=== PATIENT | female | born 1955 | race Caucasian/White ===

== ENCOUNTER 2018-01-16 13:48 | Day surgery (SDC) | payer OTHER, SELFPAY ==
[2018-01-07 12:27] VITALS: BMI 29.7
[2018-01-16 14:36] VITALS: BP 130/75; PULSE 63; RESP 16; TEMP 36.3; O2SAT 99; BMI 29.7
[2018-01-16] MEDS: LACTATED RINGERS 1,000 ML 42 ML IV (14:50)
--- NOTE | 2018-01-16 15:50 | PM.PREOP ---
Pre-operative Note Interval Note Pre-op Check: Yes History & Physical Reviewed by Physician and Yes Exam Performed Changes: No
[2018-01-16] MEDS: CEFAZOLIN 2 GM/100 ML FROZ.PIGGY IV (16:29)
--- NOTE | 2018-01-16 16:56 | SUR.OPER ---
Supine on padded OR bed. Pillow under head, arms secured on padded armboards <90 degree abduction. Safety belt across torso. Non-operative leg secured with tape over blanket over lower leg. Operative leg secured per surgeon during procedure. Foam padded brace at thigh of operative leg.
[2018-01-16] MEDS: LIDOCAINE 1% W/EPI INJ 20 ML INJ (17:00)
[2018-01-16 17:12] VITALS: BP 111/71; PULSE 68; RESP 14; TEMP 36.9; O2SAT 100
--- NOTE | 2018-01-16 17:15 | PM.OP.1 ---
Operative Date/Time/Diagnoses Date of procedure: 01/16/18 Time of procedure: 17:15 Pre-op diagnosis: Medial meniscal tear left knee Lateral meniscal tear left knee Tricompartmental osteoarthritis left knee Post-op diagnosis: same Procedure & Clinicians Procedure: Left knee arthroscopy with partial medial and lateral meniscectomy Same procedure as scheduled: Yes Indications: The patient presents today for left knee arthroscopy after failure of conservative treatment. The nature of the procedure including the risks and benefits, alternatives, postoperative course and expected outcome were discussed and all questions answered. Consent was obtained. Operative site confirmed and marked. Surgeon: Kun Pulido Click Yes if Unassisted: Yes Anesthesia Type: General and Local Operative Notes Findings: Examination under anesthesia was unremarkable except for small effusion. Arthroscopic evaluation revealed some complex tearing of the midbody of the lateral meniscus which was debrided with a shaver. The majority of the lateral meniscus was intact. There is diffuse grade 3 chondromalacia of the lateral compartment. There is complex tearing of the posterior horn of the medial meniscus with a horizontal component. This was trimmed to a stable rim with a basket and shaver. A significant amount of the meniscus was removed. There was grade 4 chondromalacia of the medial tibial plateau and grade 2-3 chondromalacia of the medial femoral condyle. There is diffuse grade 2 chondromalacia of the patellofemoral joint. No chondroplasty was performed. Closure Type: primary Specimen(s): none sent Estimated Blood Loss (mL): 2 Blood products transfused: none Tourniquet time (min): 15 Procedure in detail: The patient was taken to the operative suite and given prophylactic antibiotics. Examination under anesthesia was performed. The leg was then prepped and draped in usual sterile fashion. The leg was exsanguinated with an Esmarch dressing and the tourniquet raised to 300 torr. The portal sites were anesthetized with 1% lidocaine with epinephrine and then established with an 11 blade. Medial and lateral parapatellar working portals were utilized. The scope was placed into the medial portal and into the lateral compartment of the knee. The knee was placed in the figure 4 position. The knee was then allowed to hang down at 90? and the notch evaluated. The knee was then extended and the scope switched to the lateral portal and placed up in the anterior compartment. The patellofemoral joint, medial gutter, lateral gutter and suprapatellar pouch were inspected. A valgus force was then placed across the knee over lateral stress post and the medial compartment was evaluated. See specific findings and procedures above. The arthroscopy was completed and the knee drained. The knee was filled with 30 mL of 0.5% ropivacaine and 4 of morphine. The portal sites were closed with Steri-Strips. A sterile gauze and Campos wrap dressing was applied. The patient tolerated procedure well and was returned to recovery room in good condition. Complications: none Condition: stable Disposition: same day surgery Plan for aftercare: Discharge to home. Weightbearing activity as tolerated. Clinic follow-up in 2 weeks.
[2018-01-16 17:17] VITALS: BP 120/68; PULSE 60; RESP 15; O2SAT 98
[2018-01-16 17:28] VITALS: BP 119/74; PULSE 62; RESP 12; TEMP 37.1; O2SAT 96
[2018-01-16 17:40] VITALS: BP 117/72; PULSE 60; RESP 16; O2SAT 100
== END 2018-01-16 17:55 | disposition home or self-care (01) ==
PROVIDERS: Visit Provider Orthopaedic Surgery
PROC: (CPT 29870; principal; 2018-01-16 15:15)
DX: M17.12 Unilateral primary osteoarthritis, left knee (principal); M94.262 Chondromalacia, left knee; I25.10 Atherosclerotic heart disease of native coronary artery without angina pectoris; Z79.82 Long term (current) use of aspirin; I10 Essential (primary) hypertension
CPT/HCPCS: 29880; J0690; J1100; J2250; J2405; J2704; J3010

== ENCOUNTER → 2019-04-03 08:43 | Outpatient (CLI) | payer OTHER, SELFPAY ==
[2019-04-03 09:52] LABS: Add Manual Diff / Slide Review NO; Basophils Absolute Auto 100 /uL (0-100); Basophils Percent Auto 1.3 % (0-2); Eosinophils Absolute Auto 200 /uL (0-450); Eosinophils Percent Auto 3.9 % (2-4); Hematocrit 39.3 % (36-46); Hemoglobin 13.5 g/dL (12.0-16.0); Lymphocytes Absolute Auto 1200 /uL (1100-4500); Lymphocytes Percent Auto 23.4 % (25-40); Mean Corpuscular HGB Conc 34.3 % (30-36); Mean Corpuscular Hemoglobin 32.9 PG (26-34); Monocytes Absolute Auto 400 /uL (0-900); Monocytes Percent Auto 7.9 % (3-14); Neutrophils Absolute Auto 3300 /uL (1500-7000); Neutrophils Percent Auto 63.5 % (50-75); Platelet Count 187 X10^3/uL (150-400); Red Blood Cell Count 4.09 X10^6/uL (4.0-5.2); Red Cell Distribution Width 13.8 % (11.6-14.8); White Blood Cell Count 5.2 X10^3/uL (4.5-11.0)
[2019-04-03 10:10] LABS: Alanine Aminotransferase 23 IU/L (9-52); Albumin 3.7 g/dL (3.5-5.0); Alkaline Phosphatase 46 U/L (38-126); Aspartate Aminotransferase 25 IU/L (14-36); BUN Creatinine Ratio 28.6 (6-22); Bilirubin Total 0.4 mg/dL (0.2-1.3); Blood Urea Nitrogen 20 mg/dL (7-17); Estimated Glomerular Filt Rate > 60.0 mL/min (>60); Gamma Glutamyl Transpeptidase 12 U/L (12-43); Glucose 83 mg/dL (80-110); Total Protein 5.9 g/dL (6.3-8.2)
[2019-04-03 10:41] LABS: Thyroid Stimulating Hormone 1.15 uIU/mL (0.47-4.68)
[2019-04-03 10:43] LABS: Ferritin 58.2 ng/mL (11.1-264)
[2019-04-03 12:43] LABS: Hepatitis B Surface Antigen NEGATIVE s/c (NEGATIVE)
[2019-04-05 18:27] LABS: Hepatitis B Core Antibody Nonreactive (Nonreactive)
== END ==
PROVIDERS: Visit Provider Internal Medicine
DX: R53.83 Other fatigue (principal); E04.2 Nontoxic multinodular goiter; K74.60 Unspecified cirrhosis of liver; I25.10 Atherosclerotic heart disease of native coronary artery without angina pectoris; I71.2 Thoracic aortic aneurysm, without rupture; E78.5 Hyperlipidemia, unspecified; R01.1 Cardiac murmur, unspecified
CPT/HCPCS: 36415; 82040; 82247; 82565; 82728; 82947; 82977; 84075; 84155; 84443; 84450; 84460; 84520; 85025; 86376; 86704; 87340

== ENCOUNTER → 2019-05-08 08:16 | Outpatient (CLI) | payer OTHER, SELFPAY ==
[2019-05-08 09:35] LABS: Cholesterol 210 mg/dL (140-199); HDL Cholesterol 86 mg/dL (40-60); LDL Cholesterol Calculated 108 mg/dL (<100); Triglycerides 80 mg/dL (35-150)
== END ==
PROVIDERS: PCP Internal Medicine; Visit Provider Internal Medicine
DX: E78.5 Hyperlipidemia, unspecified (principal)
CPT/HCPCS: 36415; 80061

== ENCOUNTER → 2019-08-29 19:19 | Outpatient (CLI) | payer OTHER, SELFPAY ==
--- NOTE | 2019-08-29 19:23 | DI.RAD.S_ITS ---
PROCEDURE: XR FOOT LT MIN 3V INDICATIONS: LEFT FOOT PAIN TECHNIQUE: 3 views of the foot were acquired. COMPARISON: None. FINDINGS: Bones: No acute fractures or dislocations. Small corticated bony fragment adjacent to the proximal 5th metatarsal. No suspicious bony lesions. Soft tissues: No tibiotalar joint effusion. Achilles tendon appears normal. 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 No definite acute fracture. No osseous lesion. If symptoms and/or clinical suspicion for pathology persist, further assessment with repeat, or nonemergent advanced imaging (e.g., CT, MRI, or bone scan) may be helpful for further assessment. Dictated by: Hunter Zimmerman M.D. on 08/29/2019 at 20:01 Approved by: Hunter Zimmerman M.D. on 08/29/2019 at 20:02
== END ==
PROVIDERS: PCP Internal Medicine; Referring Provider Student in an Organized Health Care Education/Training Program; Visit Provider Student in an Organized Health Care Education/Training Program
DX: M79.672 Pain in left foot (principal); S92.352G Displaced fracture of fifth metatarsal bone, left foot, subsequent encounter for fracture with delayed healing
CPT/HCPCS: 73630

== ENCOUNTER → 2020-03-16 10:43 | Outpatient (CLI) | payer MEDICARE, SELFPAY ==
[2020-03-16 12:11] LABS: BUN Creatinine Ratio 26.7 (6-22); Blood Urea Nitrogen 23 mg/dL (7-17); Calcium 9.2 mg/dL (8.4-10.2); Carbon Dioxide 28 mmol/L (22-32); Chloride 100 mmol/L (98-107); Estimated Glomerular Filt Rate > 60.0 mL/min (>60); Glucose 106 mg/dL (80-110); HEMOLYSIS < 15 (0-50); Potassium 4.9 mmol/L (3.4-5.1); Sodium 134 mmol/L (137-145)
== END ==
PROVIDERS: PCP Internal Medicine; Referring Provider Internal Medicine Interventional Cardiology; Visit Provider Internal Medicine Interventional Cardiology
DX: I71.9 Aortic aneurysm of unspecified site, without rupture (principal); I25.10 Atherosclerotic heart disease of native coronary artery without angina pectoris
CPT/HCPCS: 36415; 80048

== ENCOUNTER → 2020-08-16 07:24 | Outpatient (CLI) | payer OTHER, SELFPAY ==
[2020-08-16 09:55] LABS: Add Manual Diff / Slide Review NO; Basophils Absolute Auto 100 /uL (0-100); Eosinophils Absolute Auto 200 /uL (0-450); Eosinophils Percent Auto 2.5 % (2-4); Hematocrit 41.4 % (36-46); Hemoglobin 14.2 g/dL (12.0-16.0); Lymphocytes Absolute Auto 1700 /uL (1100-4500); Lymphocytes Percent Auto 27.5 % (25-40); Mean Corpuscular HGB Conc 34.3 % (30-36); Mean Corpuscular Hemoglobin 33.5 PG (26-34); Mean Corpuscular Volume 97.7 fL (80-100); Monocytes Absolute Auto 500 /uL (0-900); Monocytes Percent Auto 7.6 % (3-14); Neutrophils Absolute Auto 3800 /uL (1500-7000); Neutrophils Percent Auto 61.4 % (50-75); Platelet Count 168 X10^3/uL (150-400); Red Blood Cell Count 4.24 X10^6/uL (4.0-5.2); Red Cell Distribution Width 14.3 % (11.6-14.8); White Blood Cell Count 6.2 X10^3/uL (4.5-11.0)
[2020-08-16 10:15] LABS: Alanine Aminotransferase 24 IU/L (<35); Albumin 3.9 g/dL (3.5-5.0); Albumin Globulin Ratio 1.5 (1.0-2.8); Alkaline Phosphatase 47 U/L (38-126); Aspartate Aminotransferase 34 IU/L (14-36); BUN Creatinine Ratio 27.6 (6-22); Bilirubin Total 0.5 mg/dL (0.2-1.3); Blood Urea Nitrogen 29 mg/dL (7-17); Carbon Dioxide 27 mmol/L (22-32); Chloride 104 mmol/L (98-107); Cholesterol 186 mg/dL (140-199); Estimated Glomerular Filt Rate 52.6 mL/min (>60); Globulin 2.6 g/dL (1.7-4.1); Glucose 85 mg/dL (80-110); HDL Cholesterol 91 mg/dL (40-60); HEMOLYSIS < 15 (0-50); LDL Cholesterol Calculated 85 mg/dL (<100); Sodium 134 mmol/L (137-145); Total Protein 6.5 g/dL (6.3-8.2); Triglycerides 50 mg/dL (35-150)
== END ==
PROVIDERS: PCP Internal Medicine; Referring Provider Orthopaedic Surgery Adult Reconstructive Orthopaedic Surgery; Visit Provider Orthopaedic Surgery Adult Reconstructive Orthopaedic Surgery
DX: Z01.818 Encounter for other preprocedural examination (principal); R73.9 Hyperglycemia, unspecified; E78.5 Hyperlipidemia, unspecified; Z01.812 Encounter for preprocedural laboratory examination
CPT/HCPCS: 36415; 80053; 80061; 83036; 85025; 93005

== ENCOUNTER → 2020-09-13 11:02 | Outpatient (CLI) | payer OTHER, SELFPAY ==
[2020-09-13 14:32] LABS: COVID19 -Nasal RAPID Negative (Negative)
== END ==
PROVIDERS: PCP Internal Medicine; Visit Provider Physician Assistant
DX: Z20.822 Contact with and (suspected) exposure to COVID-19 (principal)
CPT/HCPCS: 87635; C9803

== ENCOUNTER 2020-09-15 06:36 | Day surgery (SDC) | payer OTHER, SELFPAY ==
[2020-09-15] VITALS (14 sets, daily range): BP systolic 88–125; BP diastolic 55–82; PULSE 50–68; RESP 12–21; TEMP 36.1–36.9; O2SAT 92–96; BMI 28.4
[2020-09-15] MEDS: LACTATED RINGERS 1,000 ML 42 ML IV ×2 (07:00→09:52)
--- NOTE | 2020-09-15 07:07 | DI.RAD.S_ITS ---
PROCEDURE: XR KNEE LT 1TO2V INDICATIONS: post op films TECHNIQUE: 2 view(s) of the knee acquired. COMPARISON: [facility], , KNEE 3V LEFT, 06/03/2016, 10:41. FINDINGS: Bones: Expected postoperative alignment of left knee arthroplasty. Hardware appears intact. Chronic post traumatic callus formation versus sessile exostosis involving the proximal fibula is unchanged. Soft tissues: Overlying postoperative changes are noted. IMPRESSION: Expected postoperative alignment Dictated by: Ervin Delacruz M.D. on 09/15/2020 at 10:28 Approved by: Ervin Delacruz M.D. on 09/15/2020 at 10:31
[2020-09-15] MEDS: MELOXICAM 7.5 MG TABLET 15 MG PO (07:28)
[2020-09-15] MEDS: PREGABALIN 75 MG CAPSULE PO (07:28)
[2020-09-15] MEDS: ACETAMINOPHEN 325 MG TABLET 975 MG PO (07:28)
--- NOTE | 2020-09-15 07:29 | PM.PREOP ---
Pre-operative Note COVID-19 COVID-19 status: Negative Result date/Date tested (Pos, Neg/Pending): 09/13/20 Interval Note History & Physical reviewed/Exam performed by Physician: Yes Changes to H&P: No H&P completed within 30 days and has changed as indicated here:: Plan for left TKA
[2020-09-15] MEDS: CEFAZOLIN 2 GM/100 ML FROZ.PIGGY IV ×3 (07:47→23:56)
[2020-09-15] MEDS: BUPIVACAINE 0.5% (PF) VIAL 30 ML INJ (08:01)
[2020-09-15] MEDS: TRIAMCINOLONE 40 MG/ML VIAL IM (08:03)
[2020-09-15] MEDS: TRANEXAMIC ACID 1,000 MG VIAL 1000 MG INJ ×2 (08:09→09:02)
--- NOTE | 2020-09-15 08:22 | SUR.OPER ---
Supine on padded OR bed. Pillow under head, arms secured on padded armboards <90 degree abduction. Safety belt across torso. Non-operative leg secured with tape over blanket over lower leg. Operative leg secured on Nathe knee positioner. Foam padded brace at thigh of operative leg.
[2020-09-15] MEDS: ROPIVACAINE 0.5% PF 5 MG/ML 20ML VIAL 60 ML INJ (08:29)
[2020-09-15] MEDS: MORPHINE 4 MG/ML INJ INJ (08:30)
[2020-09-15] MEDS: KETOROLAC 30 MG/ML VIAL IV (08:30)
[2020-09-15] MEDS: SODIUM CHLORIDE IRRIG SOLUTION 250 ML, POVIDONE-IODINE SPONGE STICKS 1 APPLIC IRR (08:33)
--- NOTE | 2020-09-15 09:29 | P.OP_ITS ---
Operative Date/Time/Diagnoses Date of procedure: 09/15/20 Time of procedure: 09:32 Pre-op diagnosis: left knee OA Post-op diagnosis: same Procedure & Clinicians Procedure: left TKA Same procedure as scheduled: Yes Indications: Left knee osteoarthritis resistant to further conservative measures Surgeon: Ernst White Painting Department Supervisor: Juni Byrd Anesthesia Type: General and Spinal Operative Notes Findings: Left knee osteoarthritis with osteophytes, subchondral sclerosis, and cartilage loss. Closure Type: primary Specimen(s): none sent Prosthetic devices, grafts, tissues, transplants, or devices: Dave and nephew Journey 2 size 6 left CR femur Size 5 left Journey tibial base plate Size 5-6 left 9 mm thick Journey 2 polyethylene deep dished 35 mm oval patellar button Estimated Blood Loss (mL): 100 Blood products transfused: none Tourniquet time (min): 47 Procedure in detail: Patient was met in the preoperative holding area where the site and side of surgery were marked by . Informed consent had been signed in clinic but was also reviewed the preoperative holding area. All last minute questions were answered. Patient also wants the right knee injected with steroid for continued pain relief on that side. This will be performed under anesthesia. Patient was then brought back in the operating room. She received a spinal anesthetic she was then placed supine on the table and induced under general anesthesia. The skin was prepped with ChloraPrep. A 22 gauge needle was inserted to the right knee from the superolateral portal position and 4 cc mixture of 1 cc of Kenalog and 3 cc of 0.5% lidocaine were then injected in the knee. The needle was then removed and match was placed. A nonsterile tourniquet was then placed on left thigh and the left lower extremity was then prepped and draped in the normal sterile fashion. A surgical time-out was performed verifying the site and side surgery well as the name of the patient. The left lower extremity was then exsanguinated using Esmarch and the tourniquet was inflated 250 mm of mercury. A longitudinal incision over the left knee was made in the skin using 10. Blade. A new 10. Blade was then used to make medial lateral flaps followed by the medial parapatellar arthrotomy. Hoffa's fat pad was then removed. A medial peel was then performed. The lateral meniscus was then removed as well as ACL. Amador's line was then marked as well as the entry site for the intramedullary aviva for the femur. A drill was then used to enter the femur as well as the tibia. Intramedullary aviva was placed inside the femur and a 5 degree left cutting block was then placed. This was pinned into place and a neutral cut was then made with an oscillating saw. The guides were then removed and intramedullary aviva was then placed inside the tibia. The cutting guide was then placed so that it took a minimal cut on the medial side just underneath the sclerotic bone. A drop aviva was used to verify varus valgus alignment. This was then pinned into place and the oscillating saw was then used to make this tibia cut. The tibia cut was then removed as well as the medial meniscus. The knee was then brought into full extension and a 9 mm static block was able place. The knee was then brought into flexion and gap supervisor welding equipment repairer was then used. This was compared to Whitesides line and showed a large amount external rotation about 5-6 degrees. This significantly tightened down the medial size compared to the lateral side in flexion. This was then abandoned and the standard distal femoral cutting guide was then placed and the guide was aligned to Whitesides line at about 40? of external rotation. This was then pinned in place and the femur was sized to size 6. This was then removed and compared to Amador line as well as epicondylar axis and. Appropriate. A size 6 distal femoral cutting block was then pinned into place and the 5 cuts were then made. A size 6 distal femur trial was then placed and the notch cut was then performed. A size 5 tibia was then selected with a 9 mm thick CR polyethylene this was very tight in flexion and was noted this point that the PCL was very tight a 15 blade was used to pie crust the PCL which improved the flexion gap. The knee was brought through range of motion with stable varus valgus stress through full extension and flexion range of motion. The patella was then cut using freehand technique and sized to a 35 mm oval patella this was then clamped in place and drilled a 35 mm oval button trial was then placed in the knee was brought to range of motion with good patellar tracking. The tibial trial external rotation was then marked using floating technique. At this point the patellar trial was then removed the lug holes for the femoral component were th en drilled in the femoral component was removed tibial trial was then removed and the tibial base plate was then matched to our previous farooq and the tibia was prepped. Pulse lavage was used to thoroughly irrigate the knee as well as the cut surfaces of the bone. Local anesthetic was infiltrated in the posterior aspect knee as well as the periarticular soft tissues. Cement was mixed. Cement was then finger packed onto the cleaned and dried cut surface of the tibia. So was also placed on the posterior aspect of the tibial tray. Tray was then malleted into place and excess cement was removed. Saw was then finger packed onto the cut surface of the femur with exception of the posterior condylar cut. Cement was placed on the posterior condylar feet of the femoral component this was then malleted into place and excess cement was removed. A 9 mm thick polyethylene trial was then placed in the knee was brought into full extension and ankles held in internal rotation. Some was then placed onto the patella and the patellar button was then clamped in place excess cement was removed. At this point Betadine solution was placed in the wound for several minutes after which was pulse lavaged with copious normal saline. Once the cement was fully cured the knee was brought through range of motion final time the midline mm thick polyethylene trial was removed and a 9 mm thick deep dish polyethylene was then placed verifying the medial and lateral tabs were well engaged. The knee was then irrigated a final time. Hemostasis was achieved using electrocautery. The medial parapatellar arthrotomy was closed using 1. Vicryl interrupted fashion followed by running Quill suture. A running fat suture with a 2 Vicryl was then performed followed by 2 0 Vicryl in the subcutaneous layer followed by 3-0 Stratafix Dermabond and Aquacel dressing. Complications: none Post-operative Condition: stable Disposition: PACU Plan for aftercare: 24 hours post-op abx, WBAT LLE, ASA 81mg BId for 6 weeks for DVT prophylaxis
[2020-09-15] MEDS: OXYCODONE IR 5 MG TABLET PO ×4 (10:16→22:01)
[2020-09-15] MEDS: LACTATED RINGERS 1,000 ML 100 ML IV ×2 (12:32→23:10)
--- NOTE | 2020-09-15 13:41 | PC.NURSE ---
Assess- Patient is alert and oriented x3. She had a left total knee, aquacel dressing in place with acosta wrap over top of dressing. Patient was having some plain down in PACU and was given 5mg of oxycodone. Patient states that this helped her discomfort. CMS to l.knee is cdi, ppx2 and patient has feeling to her leg and knee. She is on a gluten free diet, she has LR infusing at 100cc/hr and is tolerating this well. Voices no complaints of pain now. Will explain pain medication regimen to her.
[2020-09-15] MEDS: IBUPROFEN 400 MG TABLET PO ×3 (14:06→20:46)
[2020-09-15] MEDS: ACETAMINOPHEN 325 MG TABLET 650 MG PO ×2 (14:07→20:46)
--- NOTE | 2020-09-15 14:37 | PT.IIE ---
Current Diagnoses Unilateral primary osteoarthritis, left knee (09/15/20) Surgery Performed Operation Date: 09/15/20 07:45 Actual Procedures p Left Total Knee Arthroplasty, Right knee steroid injection(Left) - Ernst White MD Surgical History (Last Updated 01/07/18 @ 13:14 by Yana Lyon, RN) H/O hernia repair (~1996) History of appendectomy (~1995) History of lumpectomy of right breast Status post LASIK surgery of both eyes Medical History (Last Updated 01/07/18 @ 13:55 by Yana Lyon, RN) Aortic valve regurgitation Breast cancer (~2014) Chest pain Coronary arteriosclerosis Diastolic dysfunction Dyspnea on exertion H/O coronary angiogram (~07/23/17) History of chest pain Hypertension Leg swelling Lung nodule, multiple Sinus bradycardia Thoracic aortic aneurysm without rupture Thyroid mass Physical Therapy Inpatient Evaluation/Re-Eval M1 PT/OT-IP Prior Functional Status Start: 09/15/20 16:17 Freq: NEEDED Status: Active Protocol: Document 09/15/20 14:37 AB (Rec: 09/15/20 16:34 AB [id number]) Medical Review Prior Functional Status Medical History Reviewed Yes Communication able to make needs known Mobility and Gait pt stated that she is independent with all mobilities and ambulation without AD Social History Household Members none Living Arrangements House Number of Floors (Floors) 3 or More Floors Number of Stairs To Enter/Railing? pt will stay on main level of the house no steps to enter; ramp Home Environment High Toilet,Walk in Shower, Ramp Home Equipment Bedside Commode,Grab Bars In Shower Additional Social History Comment pt will have her friends stay and assist her at home for 2-3 weeks pt stated that she will use her bedside commode as a shower chair and a RTS M2 PT-IP Current Condition Start: 09/15/20 16:17 Freq: NEEDED Status: Active Protocol: Document 09/15/20 14:37 AB (Rec: 09/15/20 16:34 AB [id number]) Physical Therapy Current Condition Current Condition Evaluation Date 09/15/20 Treatment Diagnosis s/p L TKA; difficulty in walking Onset Date 09/15/20 Weight Bearing Status Weight Bearing Status Weight Bear as Tolerated Allowed Weight Bearing Amount (enter % LLE WBAT or #) (%) M3 PT-IP Subjective Start: 09/15/20 16:17 Freq: NEEDED Status: Active Protocol: Document 09/15/20 14:37 AB (Rec: 09/15/20 16:34 AB [id number]) Subjective Physical Therapy Visit Type Type Initial Evaluation Visit Start Time 14:37 Visit Stop Time 15:35 Total Visit Minutes 58 Number of LIFE SCIENCES INSTRUCTOR Visits 0 Physical Therapy Visit Comments Patient Comments pt is agreeable to do PT Therapy Pain Assessment Pain When Pain Assessed At Rest Pain Present Pain Present Pain Reported Location Left Knee Intensity 3 Scale Used increases to 6/10 with mobility Pain Management Techniques Apply Cold,Distraction, Elevation,Modification of Treatment,Re-positioning, Timing of Activity with Medications M4 PT-IP Mobility and Gait Start: 09/15/20 16:17 Freq: NEEDED Status: Active Protocol: Document 09/15/20 14:37 AB (Rec: 09/15/20 16:34 AB [id number]) PT-Bed Mobility Assessment Supine to Sit Supine to Sit Standby Assistance Scooting Scooting to Edge of Bed Standby Assistance PT-Transfer Assessment Sit to and From Stand Sit to and from Stand Contact Guard Assistance, Minimal Assistance Equipment Transfer Assistive Device Gait Belt,Front Wheeled Walker Orthotic/Prosthetic Devices or Brace: No Transfers Transfer Destination Toilet Transfer Technique ambulated using FWW Transfer Ability Level of Assist Contact Guard Assistance, Minimal Assistance,1 Person Assistance,Use of Upper Extremities Comments Mobility Comments BP supine: 120/70. completed supine to sit SBA. pt was able to sit on EOB SBA. c/o slight dizziness. BP: 133/75. completed sit to stand CGA to min A. ambulated in room using FWW ~ 30 ft CGA to min A and requested to use the toilet. ambulated to the toilet using FWW SBA to min A and cues. completed sit to stand from the toilet using grab bar min A and ambulated towards the sink CGA using FWW . pt was able to maintain standing by the sink FWW for support CGA while completing handwashing. agreed to sit up on chair and ambulated to the chair using FWW CGA. positioned on chair. ice pack provided. call light and table placed within reach. Gait Assessment Gait Gait Assistance Required: Contact Guard Assist,Minimum Assistance Distance (Feet) 30 Able to Maintain Weight Bearing Status Yes During Gait Assistive Devices Assistive Device Gait Belt,Front Wheeled Walker Orthotic/Prosthetic Devices or Brace: No Gait Deviations General Gait Pattern Antalgic,Decreased Stride Length,Decreased Feet Clearance Factors Limiting Gait Function Factors Limiting Gait Function Decreased Activity Tolerance, Decreased Strength,Limited Range of Motion,Pain,Poor Balance,Poor Safety Awareness PT-Balance Assessment Sitting Balance and Reactions Static Sitting Balance Ability Good Dynamic Sitting Balance Ability Good Standing Balance and Reactions Static Standing Balance Ability Fair Dynamic Standing Balance Ability Fair Device Used FWW M5 PT-IP Objective Assessments Start: 09/15/20 16:17 Freq: NEEDED Status: Active Protocol: Document 09/15/20 14:37 AB (Rec: 09/15/20 16:34 AB [id number]) Orientation Orientation/Cognition Level of Alertness Alert Orientation Name,Age,Birthday,Month,Date, Year,Day of Week,Place, Situation Language Function Ability No Deficits Noted Safety Awareness Understands Safety Issues Memory Description No Deficits Noted Gross Range of Motion Lower Extremity ROM Assessment Left Impaired Impairments L knee flexion: ~ 50 degrees L knee extension: lacking ~ 30 degrees to neutral has increase muscle guarding affecting movement Strength Lower Extremity Strength Assessment Left Impaired Hip 4-/5 Knee 3+/5 Coordination Assessment Gross Coordination Gross Coordination WNL Sensation Assessment Sensation Gross Sensation WNL Muscle Tone Muscle Tone WNL Yes M6 PT-IP Treatment Start: 09/15/20 16:17 Freq: NEEDED Status: Active Protocol: Document 09/15/20 14:37 AB (Rec: 09/15/20 16:34 AB [id number]) Physical Therapy Treatment Exercises Exercises Heel Slides Education Education Provided Precautions,Weight Bearing Status,Post-Op Packet,Safety M7 PT-IP Assessment and Plan Start: 09/15/20 16:17 Freq: NEEDED Status: Active Protocol: Document 09/15/20 14:37 AB (Rec: 09/15/20 16:34 AB [id number]) PT Summary Assessment and Plan Potential Rehabilitation Potential Good Status of Condition at Evaluation Stable Summary Impairments Pain,ROM,Strength,Balance, Coordination,Bed Mobility, Transfers,Gait,Activity Tolerance Assessment Summary pt requiring CGA to min A with mobility and plans to go home with friends to assist her. will conduct caregiver training when appropriate. pt stated that she is set up for out pt PT. will continue to assess progress. Goals Bed Mobility Goal Independent Transfer Goal Independent,Front Wheeled Walker Gait Goal Independent,Front Wheel Walker Gait Distance 250 Days to Meet Goals 3 Frequency of Treatment Frequency Of Treatment Twice a Day Treatment Plan Physical Therapy Treatment Plan Bed Mobility Training,Transfer Training,Gait Training, Therapeutic Exercise,Balance Retraining,Post Op Education, Discharge Planning,Hot or Cold Pack,Neuromuscular Re-ed, Coordination Retraining,Manual Therapy Precautions Other Precautions LLE WBAT Recommendations To Nursing Amount of Assist Needed 1 Person Assist Discharge Recommendations PT Discharge Recommendations Home with Assistance, Outpatient PT Transportation Needs at Discharge Private Vehicle
[2020-09-15] MEDS: ONDANSETRON 4 MG/2 ML INJ IV (16:16)
[2020-09-15] MEDS: DOCUSATE 100 MG CAPSULE PO (20:46)
[2020-09-15] MEDS: METOPROLOL IR 25 MG TABLET 12.5 MG PO (20:46)
[2020-09-15] MEDS: PRAVASTATIN 20 MG TABLET 10 MG PO (20:46)
[2020-09-15] MEDS: ASPIRIN EC 81 MG TABLET PO (20:46)
[2020-09-15] MEDS: HYDROMORPHONE 0.5 MG INJ 0.2 MG IV (20:54)
[2020-09-16] MEDS: IBUPROFEN 400 MG TABLET PO ×3 (00:45→08:20)
[2020-09-16 01:00] VITALS: BP 115/47; PULSE 52; RESP 16; TEMP 36.1; O2SAT 96
--- NOTE | 2020-09-16 03:29 | PC.NURSE ---
0100: patient is alert and oriented. Breath sounds CTA with RA sat of 96%; on continuous oximetry. HRR but bradycardic at 52 bpm. Slight nausea when up to bathroom but resolved after being back to bed and denies need for antiemetic. BT present and states she is passing flatus. Denies dysuria, frequency or urgency with urination. Able to move self in bed and got up to bathroom with walker and SBA; does have limited ROM in left knee and some weakness. Aquacel dressing covered with acosta wrap to left knee is CDI; bruising noted on posterior thigh just above acosta wrap. CMS is intact. States pain is only 1/10 so medicated only with scheduled Ibuprofen but is aware she can have other pain medication should pain intensify; ice pack applied. Wearing bilateral calf SCD's. Fall risk score is moderate and bed alarm is activated.
[2020-09-16] MEDS: OXYCODONE IR 5 MG TABLET PO ×2 (05:02→08:19)
[2020-09-16 06:00] VITALS: BP 121/87; PULSE 60; RESP 16; TEMP 36.1; O2SAT 97
[2020-09-16 06:34] LABS: Hemoglobin 11.9 g/dL (12.0-16.0)
[2020-09-16] MEDS: DOCUSATE 100 MG CAPSULE PO (08:19)
[2020-09-16] MEDS: ASPIRIN EC 81 MG TABLET PO (08:19)
[2020-09-16] MEDS: hydroCHLOROthiazide 25 MG TABLET 12.5 MG PO (08:20)
[2020-09-16] MEDS: METOPROLOL IR 25 MG TABLET 12.5 MG PO (08:20)
[2020-09-16] MEDS: ACETAMINOPHEN 325 MG TABLET 650 MG PO (08:20)
--- NOTE | 2020-09-16 08:31 | PM.DS.1 ---
History of Present Illness History of Present Illness Date Patient Seen: 09/16/20 Time Patient Seen: 08:31 Chief complaint: OPB Narrative: Please refer to previously documented HPI and chart. Discharge Providers Provider Discharge Date: 09/16/20 Primary care physician: Ariadna Chairez MD Consults: 09/15/20 07:07 Consult to Anesthesiology Routine Comment: Consulting Provider: Anesthesiologist Reason for consultation: Regional block for post operative pain control 09/15/20 10:51 Consult to Discharge Planning Routine Comment: Consult to Physical Therapy Evaluate & Treat Comment: Physician Instructions: postop TKA protocol Consult to Respiratory Therapy Evaluate & Treat Comment: Physician Instructions: Evaluate and treat Discharge provider: Eric Rico PA-C Summary Hospital Course Discharge Diagnosis: Left knee osteoarthritis Status post left total knee arthroplasty Hospital Course: 65-year-old female with the above-listed diagnoses was appropriately consented for the above listed procedure presenting to the OR undergoing said procedure without difficulty or complication then admitted for rehabilitation convalescing without significant issue and stable for discharge home safely today after evaluation noting ability to void without difficulty and denying intractable pain or dysfunction including but not limited to fever, chills, chest pain and shortness of breath. The patient and or family verbalized understanding postoperative care instructions and plan for follow-up for re-evaluation in 2 weeks. Status at Discharge Cognitive/behavioral status at discharge: oriented Functional status at discharge: uses cane/walker Overall status at discharge: patient is progressing back to baseline Time Spent with Patient Time spent: Less than 30 minutes Exam Vital Signs (past 8 hours): - 09/16/20 01:00 09/16/20 06:00 Temperature 97.0 F L 97.0 F L Pulse Rate 52 L 60 Respiratory Rate 16 16 Blood Pressure 115/47 L 121/87 Pulse Oximetry 96 97 Oxygen Delivery Method Room Air Oxygen Flow Rate 0 Narrative Exam Narrative: Well-developed and well-nourished 65-year-old female observed resting comfortably in no apparent distress, alert and oriented x3 with normal heart rate and inspiratory effort. Their dressing was clean, dry and intact. The patient's extremities were neurovascularly intact without signs or symptoms of DVT. Objective Labs Result Diagrams: 09/16/20 06:11 Labs: Laboratory Results - last 24 hr 09/16/20 06:11 Hgb 11.9 L Hct 35.0 L [facility] Medical History (Updated 01/07/18 @ 13:55 by Yana Lyon RN) Aortic valve regurgitation Breast cancer (~2014) Chest pain Coronary arteriosclerosis Diastolic dysfunction Dyspnea on exertion H/O coronary angiogram (~07/23/17) History of chest pain Hypertension Leg swelling Lung nodule, multiple Sinus bradycardia Thoracic aortic aneurysm without rupture Thyroid mass Surgical History (Updated 01/07/18 @ 13:14 by Yana Lyon RN) H/O hernia repair (~1996) History of appendectomy (~1995) History of lumpectomy of right breast Status post LASIK surgery of both eyes Social History household members: none Smoking Status: Never smoker alcohol intake: current Discharge Assessment & Plan Assessment and Plan Assessment: Left knee osteoarthritis Status post left total knee arthroplasty Plan of Treatment: Discharge home today Total knee care protocol Follow-up in clinic in 2 weeks for re-evaluation or sooner as needed Discharge Plan Discharge Plan Patient Disposition: Home Discharge orders & Medications Discharge Orders: Discharge (Order); Ordered 09/16/20 Ordered By: Eric Rico Prescriptions: Continued meloxicam 7.5 mg Tablet 7.5 mg PO DAILY PRN (Reason: Pain) RF: 0 metoprolol tartrate 25 mg Tablet 12.5 mg PO BID RF: 0 hydrochlorothiazide 12.5 mg Tablet 12.5 mg PO DAILY RF: 0 coenzyme Q10 30 mg Capsule 30 mg PO DAILY RF: 0 cholecalciferol (vitamin D3) [Vitamin D3] 1,000 unit Tablet 1,000 unit PO DAILY RF: 0 omega-3 fatty acids-fish oil [Fish Oil] 300-1,000 mg Capsule 1 cap PO DAILY RF: 0 Chiki-E 400 mg Tablet 400 mg PO DAILY RF: 0 turmeric root extract 500 mg Capsule 500 mg PO DAILY RF: 0 oxycodone 5 mg tablet 5 mg PO Q4-6H PRN (Reason: pain) Qty: 14 RF: 0 pravastatin 10 mg Tablet 10 mg PO BEDTIME RF: 0 pravastatin 10 mg Tablet 10 mg PO BEDTIME RF: 0 Changed aspirin 81 mg Tablet,Delayed Release (Dr/Ec) 81 mg PO BID Qty: 0 RF: 0 Follow up/Referrals: Ernst White MD [Physician] - (2 weeks ) Ariadna Chairez MD [Primary Care Provider] - Diet/Activity/Treatments Diet: Diet as Tolerated Activity: WBAT with fall precautions Cold/Heat Therapy: Ice 20 min / hr as tolerated Skin/Wound/Dressing Care Report to your healthcare provider any signs of infection, such as:: chills, fever, night sweats, increased pain, unusual drainage and unusual redness Dressing: Keep dressing clean, dry and intact. Visit Report/Discharge Packet Instructions: DI for Knee Replacement, How to Prevent Falls, Stool Softeners, Acetaminophen, Oxycodone, Aspirin Stand Alone Forms: Surgery Discharge Discharge Data Primary Care Provider: Ariadna Chairez Attending Provider: Ernst White VTE Deep Vein Thrombosis/Pulmonary Embolism Present on Admission: No
--- NOTE | 2020-09-16 09:01 | PC.NURSE ---
Patient given oxycodone for discomfort to l.knee 01/01 pain. This has been helpful with her discomfort. She is a stand by assist to get up with walker. CMS wnl and ppx2. Patient ate well at breakfast, will check to see how pain medication is working for her. Aquacel dressing in place with acosta wrap.
--- NOTE | 2020-09-16 10:43 | PT.IPTN ---
Current Diagnoses Unilateral primary osteoarthritis, left knee (09/15/20) Surgery Performed Operation Date: 09/15/20 07:45 Actual Procedures p Left Total Knee Arthroplasty, Right knee steroid injection(Left) - Ernst White MD Physical Therapy Treatment Note M2 PT-IP Current Condition Start: 09/15/20 16:17 Freq: NEEDED Status: Discharge Protocol: Document 09/15/20 14:37 AB (Rec: 09/15/20 16:34 AB [id number]) Physical Therapy Current Condition Current Condition Evaluation Date 09/15/20 Treatment Diagnosis s/p L TKA; difficulty in walking Onset Date 09/15/20 Weight Bearing Status Weight Bearing Status Weight Bear as Tolerated Allowed Weight Bearing Amount (enter % LLE WBAT or #) (%) M3 PT-IP Subjective Start: 09/15/20 16:17 Freq: NEEDED Status: Discharge Protocol: Document 09/16/20 10:13 CLB (Rec: 09/16/20 12:01 CLB [id number]) Subjective Physical Therapy Visit Type Type Treatment Note Visit Start Time 10:13 Visit Stop Time 10:43 Total Visit Minutes 30 Notes Pt friend Aidee present for CG training. Number of WELD FITTER Visits 1 Physical Therapy Visit Comments Patient Comments pt is agreeable to do PT Therapy Pain Assessment Pain When Pain Assessed During Mobility Pain Present Pain Present Pain Reported M4 PT-IP Mobility and Gait Start: 09/15/20 16:17 Freq: NEEDED Status: Discharge Protocol: Document 09/16/20 10:13 CLB (Rec: 09/16/20 12:01 CLB [id number]) PT-Bed Mobility Assessment Sit to Supine Sit to Supine Standby Assistance Scooting Scooting Up and Down in Bed Standby Assistance PT-Transfer Assessment Sit to and From Stand Sit to and from Stand Standby Assistance,Use of Upper Extremities Equipment Transfer Assistive Device Gait Belt,Front Wheeled Walker Orthotic/Prosthetic Devices or Brace: No Transfers Transfer Destination Bed,Chair Transfer Technique ambulated using FWW Transfer Ability Level of Assist Standby Assistance,1 Person Assistance,Use of Upper Extremities Comments Mobility Comments Pt in chair upon arrival. Pt stood from chair SBA and ambulated in betts ~150ft w/FWW /SBA using step to gait pattern with increased pain with further ambulation. Pt then returned to room getting into bed SBA and performing ther ex. Pt left in bed with all needs within reach. Gait Assessment Gait Gait Assistance Required: Standby Assistance,1 Person Assist Distance (Feet) 150 Able to Maintain Weight Bearing Status Yes During Gait Assistive Devices Assistive Device Gait Belt,Front Wheeled Walker Gait Deviations General Gait Pattern Antalgic,Decreased Stride Length,Decreased Feet Clearance,Step-to Gait Factors Limiting Gait Function Factors Limiting Gait Function Decreased Activity Tolerance, Decreased Strength,Limited Range of Motion,Pain,Poor Balance Comments Gait Comments see mobility comments M5 PT-IP Objective Assessments Start: 09/15/20 16:17 Freq: NEEDED Status: Discharge Protocol: Document 09/15/20 14:37 AB (Rec: 09/15/20 16:34 AB [id number]) Orientation Orientation/Cognition Level of Alertness Alert Orientation Name,Age,Birthday,Month,Date, Year,Day of Week,Place, Situation Language Function Ability No Deficits Noted Safety Awareness Understands Safety Issues Memory Description No Deficits Noted Gross Range of Motion Lower Extremity ROM Assessment Left Impaired Impairments L knee flexion: ~ 50 degrees L knee extension: lacking ~ 30 degrees to neutral has increase muscle guarding affecting movement Strength Lower Extremity Strength Assessment Left Impaired Hip 4-/5 Knee 3+/5 Coordination Assessment Gross Coordination Gross Coordination WNL Sensation Assessment Sensation Gross Sensation WNL Muscle Tone Muscle Tone WNL Yes M6 PT-IP Treatment Start: 09/15/20 16:17 Freq: NEEDED Status: Discharge Protocol: Document 09/16/20 10:13 CLB (Rec: 09/16/20 12:01 CLB [id number]) Physical Therapy Treatment Exercises Exercises Ankle Pumps,Quad Sets,Heel Slides,Straight Leg Raises, Short Arc Quads,Passive Knee Extension Hang,Seated Knee Flexion/Extension Knee ROM Measurement flx 5-30 Education Education Provided Precautions,Weight Bearing Status,Post-Op Packet,Safety M7 PT-IP Assessment and Plan Start: 09/15/20 16:17 Freq: NEEDED Status: Discharge Protocol: Document 09/16/20 10:13 CLB (Rec: 09/16/20 12:01 CLB [id number]) PT Summary Assessment and Plan Potential Rehabilitation Potential Good Status of Condition at Evaluation Stable Summary Impairments Pain,ROM,Strength,Balance, Coordination,Bed Mobility, Transfers,Gait,Activity Tolerance Assessment Summary Pt is SBA for all mobility with increased pain with ambulation but pt has good safety awareness. Pt is able to perform all ther ex and has OP PT tomorrow. Pt has friends to assist her at home upon d/c. Goals Bed Mobility Goal Independent Transfer Goal Independent,Front Wheeled Walker Gait Goal Independent,Front Wheel Walker Gait Distance 250 Days to Meet Goals 3 Frequency of Treatment Frequency Of Treatment Twice a Day Treatment Plan Physical Therapy Treatment Plan Bed Mobility Training,Transfer Training,Gait Training, Therapeutic Exercise,Balance Retraining,Post Op Education, Discharge Planning,Hot or Cold Pack,Neuromuscular Re-ed, Coordination Retraining,Manual Therapy Precautions Other Precautions LLE WBAT Recommendations To Nursing Amount of Assist Needed 1 Person Assist Discharge Recommendations PT Discharge Recommendations Home with Assistance, Outpatient PT Transportation Needs at Discharge Private Vehicle
--- NOTE | 2020-09-16 10:47 | CM.IDA ---
Initial DCP Assessment Note Pt is a 65 yo female, resident of [place], now POD#1 from left knee surgery w/ Dr White PCP: Ariadna Chairez [facility]: [facility] Reviewed chart, pt discussed in multidisciplinary rounds this morning. Therapy has cleared pt for return home w/friends to assist and pt has planned for home, DC order from Ortho has already been initiated this morning. Met w/patient this morning, introduced role. Patient sitting up, states she has planned for two friends to stay the next two weeks and feels she will be in good hands for her recovery. No needs expected from DC planning team although will remain available in case this changes today. RUSTAM Betts
--- NOTE | 2020-09-20 15:28 | SUR.PHASEI ---
out of recovery time entered besed on chart times review by Edward Polanco RN
== END 2020-09-16 11:07 | disposition home or self-care (01) ==
LOC: OR 06:40 → AC 06:41
PROVIDERS: PCP Internal Medicine; Referring Provider Orthopaedic Surgery Adult Reconstructive Orthopaedic Surgery; Visit Provider Orthopaedic Surgery Adult Reconstructive Orthopaedic Surgery
PROC: 0SRD0JZ Replacement of Left Knee Joint with Synthetic Substitute, Open Approach (ICD-10-PCS; CPT 27447; principal; 2020-09-15 07:45)
DX: M17.12 Unilateral primary osteoarthritis, left knee (principal); E78.5 Hyperlipidemia, unspecified; I25.10 Atherosclerotic heart disease of native coronary artery without angina pectoris; I71.4 Abdominal aortic aneurysm, without rupture; I11.0 Hypertensive heart disease with heart failure
CPT/HCPCS: 27447; 36415; 73560; 85014; 85018; 97110; 97116; 97161; 97530; C1776; J0690; J1100; J1170; J1885; J2250; J2270; J2274; J2405; J2704; J3010

== ENCOUNTER → 2020-11-17 11:35 | Outpatient (CLI) | payer OTHER, SELFPAY ==
[2020-09-15 13:51] VITALS: BMI 28.4
[2020-11-17 12:34] LABS: Add Manual Diff / Slide Review NO; Basophils Absolute Auto 100 /uL (0-100); Basophils Percent Auto 1.2 % (0-2); Eosinophils Absolute Auto 200 /uL (0-450); Eosinophils Percent Auto 2.9 % (2-4); Hematocrit 39.4 % (36-46); Hemoglobin 13.3 g/dL (12.0-16.0); Lymphocytes Absolute Auto 1700 /uL (1100-4500); Lymphocytes Percent Auto 28.6 % (25-40); Mean Corpuscular HGB Conc 33.8 % (30-36); Mean Corpuscular Hemoglobin 32.9 PG (26-34); Mean Corpuscular Volume 97.5 fL (80-100); Monocytes Absolute Auto 600 /uL (0-900); Monocytes Percent Auto 10.1 % (3-14); Neutrophils Absolute Auto 3400 /uL (1500-7000); Neutrophils Percent Auto 57.2 % (50-75); Platelet Count 156 X10^3/uL (150-400); Red Blood Cell Count 4.04 X10^6/uL (4.0-5.2)
[2020-11-17 13:23] LABS: BUN Creatinine Ratio 30.2 (6-22); Blood Urea Nitrogen 19 mg/dL (7-17); Calcium 9.2 mg/dL (8.4-10.2); Carbon Dioxide 29 mmol/L (22-32); Chloride 99 mmol/L (98-107); Estimated Glomerular Filt Rate > 60.0 mL/min (>60); Glucose 94 mg/dL (80-110); HEMOLYSIS < 15 (0-50); Potassium 4.1 mmol/L (3.4-5.1); Sodium 133 mmol/L (137-145)
== END ==
PROVIDERS: PCP Internal Medicine; Referring Provider Orthopaedic Surgery Adult Reconstructive Orthopaedic Surgery; Visit Provider Orthopaedic Surgery Adult Reconstructive Orthopaedic Surgery
DX: Z01.812 Encounter for preprocedural laboratory examination (principal); R73.9 Hyperglycemia, unspecified
CPT/HCPCS: 36415; 80048; 83036; 85025

== ENCOUNTER → 2020-11-29 09:18 | Outpatient (CLI) | payer OTHER, SELFPAY ==
[2020-09-15 13:51] VITALS: BMI 28.4
[2020-11-29 12:28] LABS: COVID19 -Nasal RAPID Negative (Negative)
== END ==
PROVIDERS: PCP Internal Medicine; Visit Provider Physician Assistant
DX: Z01.812 Encounter for preprocedural laboratory examination (principal); Z20.822 Contact with and (suspected) exposure to COVID-19
CPT/HCPCS: 87635

== ENCOUNTER 2020-12-02 11:12 | Observation (INO) | payer OTHER, SELFPAY ==
[2020-09-15 13:51] VITALS: BMI 28.4
[2020-11-26 12:36] VITALS: BMI 28.8
[2020-12-01] VITALS (9 sets, daily range): BP systolic 94–128; BP diastolic 50–77; PULSE 48–60; RESP 16; TEMP 36.2–36.6; O2SAT 91–99; BMI 28.8
--- NOTE | 2020-12-01 07:40 | DI.RAD.S_ITS ---
PROCEDURE: XR KNEE RT 1TO2V INDICATIONS: post-op TECHNIQUE: 2 views of the knee were acquired. COMPARISON: [facility], CR, XR KNEE LT 1TO2V, 09/15/2020, 9:49. [facility], SUSAN, KNEE 3V LEFT, 06/03/2016, 10:41. FINDINGS: Bones: Expected appearance of the right total hip arthroplasty. No periprosthetic lucency. No fractures or dislocations. No suspicious bony lesions. Soft tissues: Joint effusion is present. Postoperative gas.. No suspicious soft tissue calcifications. IMPRESSION: Expected appearance of the right total hip arthroplasty. Dictated by: Darrin Curtis M.D. on 12/01/2020 at 13:34 Approved by: Darrin Curtis M.D. on 12/01/2020 at 13:35
[2020-12-01] MEDS: LACTATED RINGERS 1,000 ML 42 ML IV ×2 (09:31→12:15)
[2020-12-01] MEDS: ACETAMINOPHEN 325 MG TABLET 975 MG PO (09:33)
[2020-12-01] MEDS: GABAPENTIN 300 MG CAPSULE PO (09:34)
[2020-12-01] MEDS: CELECOXIB 200 MG CAPSULE PO (09:34)
--- NOTE | 2020-12-01 10:18 | PM.PREOP ---
Pre-operative Note COVID-19 COVID-19 status: Negative Result date/Date tested (Pos, Neg/Pending): 11/29/20 Interval Note History & Physical reviewed/Exam performed by Physician: Yes Changes to H&P: No H&P completed within 30 days and has changed as indicated here:: Plan for R TKA
[2020-12-01] MEDS: CEFAZOLIN 1 GM VIAL 2 GM IV ×2 (11:18→18:45)
[2020-12-01] MEDS: TRANEXAMIC ACID 1,000 MG VIAL 2000 MG INJ ×2 (11:19→12:30)
--- NOTE | 2020-12-01 11:35 | SUR.OPER ---
Supine on padded OR bed. Pillow under head, arms secured on padded armboards <90 degree abduction. Safety belt across torso. Non-operative leg secured with tape over blanket over lower leg, Gel pad under Left Heel. Operative leg in control of the Surgeon. Padded Dr. White roll bar positioner used with folded blankets under operative heel to make level with roll bar. Foam padded brace at outer thigh of operative leg, gel pad under patients posterior upper leg against positioner.
[2020-12-01] MEDS: ROPIVACAINE 0.5% PF 5 MG/ML 20ML VIAL 10 ML INJ (11:45)
[2020-12-01] MEDS: MORPHINE 4 MG/ML INJ INJ (11:47)
[2020-12-01] MEDS: KETOROLAC 30 MG/ML VIAL IV (11:48)
[2020-12-01] MEDS: POVIDONE-IODINE SPONGE STICKS 1 APPLIC TOP (12:31)
--- NOTE | 2020-12-01 13:16 | PM.OP.1 ---
Operative Date/Time/Diagnoses Date of procedure: 12/01/20 Time of procedure: 13:16 Pre-op diagnosis: right knee OA Post-op diagnosis: same Procedure & Clinicians Procedure: Right total knee arthroplasty Same procedure as scheduled: Yes Indications: right knee osteoarthritis resistant to further conservative measures Surgeon: Ernst White Photo Engraver: Juni Byrd Anesthesia Type: General and Spinal Operative Notes Findings: [id number] articulation of the lateral compartment of the right knee with overall valgus alignment. Hemosiderin staining of the soft tissues of the right knee consistent with prior hemarthrosis. Closure Type: primary Specimen(s): none sent Prosthetic devices, grafts, tissues, transplants, or devices: Dave and nephew Journey 2 CR size 6, right Dave and nephew Journey tibial base plate size 5, right Size 5-6 right 10 mm thick Journey 2 deep dish polyethylene 32 mm oval Annalisa 2 patellar button Estimated Blood Loss (mL): 100 Tourniquet time (min): 57 Procedure in detail: patient was met in the preoperative holding area where the site and side of surgery were marked by . Informed consent had been reviewed and signed in clinic was also reviewed the preoperative holding area and all last minute questions were answered. Patient was then brought back in the operating room where she received a spinal anesthetic she was then placed on the operating room table. She was induced under general anesthesia. The right lower extremity then prepped and draped after stitch placing a nonsterile tourniquet on the right thigh. a surgical time-out was performed verifying site and side of surgery as well as in the patient. The right lower extremity then exsanguinated using an Esmarch. The tourniquet was then inflated turned 50 mmHg. A longitudinal incision over the anterior aspect of the knee was made in the skin using a 10. Blade. A new 10. Blade was then used to elevate medial lateral flaps. The medial parapatellar arthrotomy was then marked out an incision was made with a 10. Blade. At this point copious dark stained synovial fluid with what appeared to be hemosiderin staining was encountered. This was lavaged away. The surfaces of the knee intracapsular they had hemosiderin staining. Hoffa's fat pad was removed. A medial peel which was limited nature was then performed. The lateral meniscus was removed. ACL was removed. Whitesides line was marked using electrocautery. a drill was then used to enter the femoral canal and tibial canal respectively. Intramedullary aviva was then placed inside the femur the right-sided distal femoral cutting jig was then placed and cut in the neutral slot. Intramedullary aviva was then placed inside the tibia and the out wood buffer jig was then used to place our cutting jig. This was provisionally pinned into place and the drop aviva was used to verify varus valgus alignment. The locking pin was then placed. A cut was then made set skin underneath the lateral portion of the sclerotic bone of the tibial plateau. Once this cut was complete the cut was removed the knee was then brought in full extension and a 9 mm static spacer was placed which was a little tight and the knee was not able to achieve full extension. We then went back to the tibia and took 2 more mm and then a 9 mm spacer fit and was balanced varus valgus. The was then brought into flexion gap cuprous chloride operator was used to leonora our rotation for our 5 in 1 cutting block. The gap cuprous chloride operator was then removed these holes were then compared to [place] line as well as epicondylar access which showed external rotation. The femur was then sized to a size 6. The 5 in 1 size 6 cutting block was then malleted into place and pinned. The sequential cuts were then made using a and oscillating saw. The 5 in 1 cutting block was then removed the bony fragments were removed. A size 6 trial femur was then placed along with a size 5 tibial base plate trial with a 9 mm thick polyethylene the knee was brought through range of motion with stable varus and valgus stress was able to achieve full extension was stable to varus valgus stress at mid flexion flexion range of motion as well. Patella was then freehand cut and sized to a size 32 mm patellar button. This then drilled and a patellar button trial was placed. The knee was brought through range of motion the patellar trial had some lift-off and a limited lateral release was then performed to achieve patellar tracking. The PCL was noted to be tight in flexion and deep flexion it was then pie crusted using a 15 blade. This improved biomechanics. The tibial base plate was then marked using floating technique. The trials were then removed and the tibial base plate was then replaced and the keel hole was drilled and punched. Bony fragments then placed inside the hole for the keel and malleted into place. A bony plug was then cut for the femoral canal as well. Local anesthetic was then infiltrated in the periarticular soft tissues including the back of the knee. Pulse lavage was then used to thoroughly irrigate the cut surfaces of the femur tibia and patella. Cement was then mixed cement was finger packed into the keel hole as well as the cut surface of the tibia. Set was placed on the underside side of the tibial base plate this was malleted into place excess cement was removed. Cement was then finger packed on the cut surface of the femur with exception of the posterior condylar cut insert was placed on the feet of the femoral component this was then malleted into place and excess cement was removed. A size 9 mm thick CR polyethylene trial was then placed the knee was brought into full extension and the ankle was held in internal rotation. Cement was then finger packed on the cut surface of the patella the patellar button was then clamped into place excess cement was removed. Betadine solution was placed in the wound the tourniquet was let down at 57 minutes of time and cement was allowed to fully cure. The knee was then pulse lavaged with copious normal saline the knee was brought through range of motion excess cement was then removed with an osteotome. I then trialed with a 10 mm thick polyethylene which had slightly better biomechanics in mid flexion and deep flexion. A 10 mm thickness deep dish polyethylene was then selected and placed make sure the medial lateral tabs were well engaged. The medial parapatellar arthrotomy was then closed using 1. Vicryl interrupted fashion followed by running Quill suture followed by 2-0 Vicryl in the subcutaneous layer followed by running 3-0 Stratafix the subcuticular layer followed by Dermabond and Aquacel dressing. Complications: none Post-operative Condition: stable Disposition: PACU Plan for aftercare: 24 hours post-op abx, WBAT RLE, ASA 81mg BID
[2020-12-01] MEDS: LACTATED RINGERS 1,000 ML 100 ML IV (15:19)
--- NOTE | 2020-12-01 15:39 | PC.NURSE ---
Pt arrived to unit at 1425.A&OX3. denies pain. LR IVF at 75ml /hr VSS, on RA. LS CTA. Tolerating water, cheese and yogurt. Awaiting to void. Admission, skin and physical assessment completed. Endorsed report to oncoming RN.
[2020-12-01] MEDS: ACETAMINOPHEN 325 MG TABLET 650 MG PO ×2 (16:07→21:09)
[2020-12-01] MEDS: ONDANSETRON 4 MG/2 ML INJ IV (17:14)
[2020-12-01] MEDS: IBUPROFEN 400 MG TABLET PO ×2 (18:07→21:12)
[2020-12-01] MEDS: ASPIRIN EC 81 MG TABLET PO (21:11)
[2020-12-01] MEDS: DOCUSATE 100 MG CAPSULE PO (21:11)
[2020-12-01] MEDS: METOPROLOL IR 25 MG TABLET 12.5 MG PO (21:12)
[2020-12-01] MEDS: PRAVASTATIN 20 MG TABLET 10 MG PO (21:14)
--- NOTE | 2020-12-01 22:59 | PC.NURSE ---
A&O x3. VSS. HAd three episodes of nausea and emesis, given IV zofran which provided relief. Right knee with Campos wrap and aquacel dressing, cdi. 1 person assist with walker and gait belt to bed side commode. Call light within reach, bed low, SDCs on.
[2020-12-02] MEDS: IBUPROFEN 400 MG TABLET PO ×3 (00:58→08:40)
[2020-12-02] MEDS: LACTATED RINGERS 1,000 ML 100 ML IV (00:59)
[2020-12-02] MEDS: CEFAZOLIN 1 GM VIAL 2 GM IV (03:41)
[2020-12-02 05:00] VITALS: BP 94/58; PULSE 59; RESP 16; TEMP 36.2; O2SAT 94
[2020-12-02 05:55] LABS: Hematocrit 36.1 % (36-46); Hemoglobin 12.1 g/dL (12.0-16.0)
[2020-12-02 07:50] VITALS: BP 98/58; PULSE 61; RESP 17; TEMP 36.4; O2SAT 94
[2020-12-02] MEDS: ACETAMINOPHEN 325 MG TABLET 650 MG PO (08:28)
[2020-12-02] MEDS: DOCUSATE 100 MG CAPSULE PO (08:29)
[2020-12-02] MEDS: ASPIRIN EC 81 MG TABLET PO (08:29)
--- NOTE | 2020-12-02 09:30 | PM.PNPO.1 ---
Subjective Subjective Date Patient Seen: 12/02/20 Time Patient Seen: 09:30 Interval history: Patient states she is doing well is in mild discomfort at rest. At this time she rates her pain a 4/10 in intensity. She denies fever, chills, nausea, chest pain, shortness of breath, or urinary retention. Patient reports good sensation throughout the bilateral lower extremities. Patient states she is looking forward to being discharged home. Exam Vital Signs (past 8 hours): - 12/02/20 05:00 12/02/20 07:50 Temperature 97.1 F L 97.6 F Pulse Rate 59 L 61 Respiratory Rate 16 17 Blood Pressure 94/58 L 98/58 L Pulse Oximetry 94 94 Oxygen Delivery Method Room Air Oxygen Flow Rate 0 Narrative Exam Narrative: Pleasant 65-year-old female postop day 1 status post right total knee arthroplasty. Patient is resting comfortably in bed, is in no acute distress, is alert and oriented x3. Skin is warm and dry, and the skin around the incision site is free of erythema, warmth, induration, or discharge. Aquacel dressing in place is clean, dry, and intact. Good sensation appreciated throughout the bilateral lower extremities to light touch. Hip flexion performed bilaterally without difficulty or discomfort, left greater than right. Ankle dorsiflexion, plantar flexion, eversion, inversion performed bilaterally without difficulty or discomfort. DP pulses palpated bilaterally. Calves are soft and nontender, negative Homans sign. No other signs of DVT appreciated. Const General: cooperative, healthy appearing and comfortable Resp Effort & Inspection: normal respiratory effort and able to speak in complete sentences Skin General: no rashes or lesions noted Objective Labs Result Diagrams: 12/02/20 05:15 Labs: Laboratory Results - last 24 hr 12/02/20 05:15 Hgb 12.1 Hct 36.1 COUNTS INCLUDE 234 BEDS AT THE [facility] Medical History Aortic valve regurgitation Breast cancer (~2014) Chest pain Coronary arteriosclerosis Diastolic dysfunction Dyspnea on exertion H/O coronary angiogram (~07/23/17) History of chest pain Hypertension Leg swelling Lung nodule, multiple Sinus bradycardia Thoracic aortic aneurysm without rupture Thyroid mass Surgical History H/O hernia repair (~1996) History of appendectomy (~1995) History of arthroplasty of left knee (09/15/20) History of lumpectomy of right breast Status post LASIK surgery of both eyes Social History household members: none Smoking Status: Never smoker alcohol intake: current Assessment & Plan Post-op Postoperative Procedures: Procedures Operation Date: 12/01/20 10:45 Actual Procedures Side Surgeon p Total Knee Arthroplasty Right Ernst White MD Postoperative day: 1 Postoperative status: doing well Postoperative plan: ambulate Postoperative plan narrative: Patient is to continue working on ambulation with the assistance of a front wheeled walker with physical therapy. Current pain management regimen is to be continued as it is adequately controlled the patient's pain level. Aspirin 81 mg twice daily is to be continued for DVT prophylaxis. Plan for discharge home pending successful work with PT today. Time Spent With Patient Time with patient: less than 15 minutes Quality VTE Deep Vein Thrombosis/Pulmonary Embolism Present on Admission: No
[2020-12-02] MEDS: OXYCODONE IR 5 MG TABLET PO ×2 (09:41→11:11)
--- NOTE | 2020-12-02 09:56 | PT.IIE ---
Current Diagnoses Unilateral primary osteoarthritis, right knee (12/01/20) Surgery Performed Operation Date: 12/01/20 10:45 Actual Procedures p Total Knee Arthroplasty(Right) - Ernst White MD Surgical History (Last Reviewed 12/02/20 @ 10:47 by Toribio Mccord PA-C) H/O hernia repair (~1996) History of appendectomy (~1995) History of arthroplasty of left knee (09/15/20) History of lumpectomy of right breast Status post LASIK surgery of both eyes Medical History (Last Reviewed 12/02/20 @ 10:47 by Toribio Mccord PA-C) Aortic valve regurgitation Breast cancer (~2014) Chest pain Coronary arteriosclerosis Diastolic dysfunction Dyspnea on exertion H/O coronary angiogram (~07/23/17) History of chest pain Hypertension Leg swelling Lung nodule, multiple Sinus bradycardia Thoracic aortic aneurysm without rupture Thyroid mass Physical Therapy Inpatient Evaluation/Re-Eval M1 PT/OT-IP Prior Functional Status Start: 12/02/20 08:17 Freq: NEEDED Status: Active Protocol: Document 12/02/20 09:56 AW (Rec: 12/02/20 10:55 AW [id number]) Medical Review Prior Functional Status Medical History Reviewed No Communication WNL. Pt is an effective verbal communicator. Mobility and Gait Pt is active and independent. She walks up to 4.5 miles daily. She enjoys skiing, cycling, kayaking, and golf. Activities of Daily Living and IADL's Independent Prior Functional Level (Other details) Pt had L TKA on 09/14/20 and has been satisfied with her rehab. Social History Household Members none Living Arrangements House Number of Floors (Floors) One Floor Number of Stairs To Enter/Railing? level entrance with slight incline leading to front door. Home Environment High Toilet,Walk in Shower, Built-In Shower Seat Home Equipment Front Wheel Walker,Straight Cane,Crutches,Bedside Commode, Hand Held Shower,Grab Bars In Shower Employment Status Retired Additional Social History Comment Pt has a safety frame around her toilet. 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 She has arranged for friends to stay with her for two weeks after discharge. M2 PT-IP Current Condition Start: 12/02/20 08:17 Freq: NEEDED Status: Active Protocol: Document 12/02/20 09:56 AW (Rec: 12/02/20 10:55 AW [id number]) Physical Therapy Current Condition Current Condition Evaluation Date 12/02/20 Treatment Diagnosis R TKA; difficulty in walking Onset Date 12/01/20 Weight Bearing Status Weight Bearing Status Weight Bear as Tolerated M3 PT-IP Subjective Start: 12/02/20 08:17 Freq: NEEDED Status: Active Protocol: Document 12/02/20 09:56 AW (Rec: 12/02/20 10:55 AW [id number]) Subjective Physical Therapy Visit Type Type Initial Evaluation Visit Start Time 09:33 Visit Stop Time 09:56 Total Visit Minutes 23 Notes RN administering pain medication as session begins Physical Therapy Visit Comments Patient Comments Pt is willing to participate with PT Patient Goals Return home today Therapy Pain Assessment Pain When Pain Assessed During Mobility Pain Present Pain Present Pain Reported Location Right Knee Intensity 5 Scale Used Numeric (0 - 10) Description Sharp,Tightness Pain Management Techniques Apply Cold,Timing of Activity with Medications M4 PT-IP Mobility and Gait Start: 12/02/20 08:17 Freq: NEEDED Status: Active Protocol: Document 12/02/20 09:56 AW (Rec: 12/02/20 10:55 AW [id number]) PT-Bed Mobility Assessment Supine to Sit Supine to Sit Contact Guard Assistance Sit to Supine Sit to Supine Minimal Assistance Scooting Scooting to Edge of Bed Standby Assistance PT-Transfer Assessment Sit to and From Stand Sit to and from Stand Standby Assistance,Use of Upper Extremities Equipment Transfer Assistive Device Gait Belt,Front Wheeled Walker Orthotic/Prosthetic Devices or Brace: No Transfers Transfer Destination Bed,Chair Transfer Ability Level of Assist Standby Assistance Comments Mobility Comments Pt was sitting up in the chair as PT arrived. She completed sit to stand SBA and used the FWW to ambulate in the halls SBA a total of 220 feet. On return to the room, she demonstrated bed mobility, needing min assist for elevation of BLE to the bed. Pt will have friends at home to assist. Pt transferred back to the chair and was left with ice applied to posterior, lateral, and medial aspects of the knee. Call light and tray table were within reach. Gait Assessment Gait Gait Assistance Required: Standby Assistance Distance (Feet) 220 Able to Maintain Weight Bearing Status Yes During Gait Assistive Devices Assistive Device Gait Belt,Front Wheeled Walker Orthotic/Prosthetic Devices or Brace: No Gait Deviations General Gait Pattern Antalgic,Decreased Stride Length,Step-to Gait Factors Limiting Gait Function Factors Limiting Gait Function Decreased Strength,Limited Range of Motion,Pain Comments Gait Comments Pt ambulated with step-to pattern and moderate UE weightbearing. She was able to equalize step lengths in response to cues but quickly reverted to step-to pattern due to pain. 5/5 pain did not increase during mobility. Stair Climbing Assessment Comments Stair Climbing Comments Not assessed. No stairs at home. PT-Balance Assessment Sitting Balance and Reactions Static Sitting Balance Ability Normal Dynamic Sitting Balance Ability Normal Standing Balance and Reactions Static Standing Balance Ability Good Dynamic Standing Balance Ability Good Device Used FWW M5 PT-IP Objective Assessments Start: 12/02/20 08:17 Freq: NEEDED Status: Active Protocol: Document 12/02/20 09:56 AW (Rec: 12/02/20 10:55 AW [id number]) Orientation Orientation/Cognition Level of Alertness Alert Orientation Name,Day of Week,Place, Situation Language Function Ability No Deficits Noted Safety Awareness Understands Safety Issues Memory Description No Deficits Noted Gross Range of Motion Lower Extremity ROM Assessment Right Impaired Strength Lower Extremity Strength Assessment Right Impaired Hip 4-/5 Knee 3+/5 Sensation Assessment Sensation Gross Sensation WNL M6 PT-IP Treatment Start: 12/02/20 08:17 Freq: NEEDED Status: Active Protocol: Document 12/02/20 09:56 AW (Rec: 12/02/20 10:55 AW [id number]) Physical Therapy Treatment Exercises Exercises Ankle Pumps,Quad Sets,Heel Slides,Passive Knee Extension Hang,Seated Knee Flexion/ Extension Knee ROM Measurement 5-82 Education Education Provided Weight Bearing Status,Post-Op Packet,Safety Other Treatments Other Treatment Performed Educated pt on weightbearing status, importance of ROM in early phases of rehab, and safe use of FWW. M7 PT-IP Assessment and Plan Start: 12/02/20 08:17 Freq: NEEDED Status: Active Protocol: Document 12/02/20 09:56 AW (Rec: 12/02/20 10:55 AW [id number]) PT Summary Assessment and Plan Potential Rehabilitation Potential Excellent Status of Condition at Evaluation Evolving Summary Impairments Pain,ROM,Strength,Bed Mobility ,Transfers,Gait Assessment Summary Ian is a 65 yo woman seen for PT evaluation on POD1 following R TKA. She had left TKA in August and was satisfied with her rehab. She is active and independent at baseline and is a retired PT. On evaluation, pt required min assist for bed mobility to elevate operative leg. All other mobility was SBA with FWW. Pt has good safety awareness and is mobilizing well. She is safe to discharge home with assist once medically cleared. She has already established with outpatient PT. Frequency of Treatment Frequency Of Treatment Discharge Recommendations To Nursing Amount of Assist Needed Standby Assistance Discharge Recommendations PT Discharge Recommendations Home with Assistance, Outpatient PT Transportation Needs at Discharge Private Vehicle
--- NOTE | 2020-12-02 10:44 | P.DS_ITS ---
History of Present Illness History of Present Illness Date Patient Seen: 12/02/20 Time Patient Seen: 10:45 Chief complaint: OPB Narrative: Refer to previous HPI. Discharge Providers Provider Discharge Date: 12/02/20 Primary care physician: Ariadna Chairez MD Consults: 12/01/20 07:39 Consult to Anesthesiology Routine Comment: Consulting Provider: Anesthesiologist Reason for consultation: Regional block for post operative pain control 12/01/20 14:37 Consult to Discharge Planning Routine Comment: Consult to Physical Therapy Evaluate & Treat Comment: Physician Instructions: postop TKA protocol Consult to Respiratory Therapy Evaluate & Treat Comment: Physician Instructions: Evaluate and treat Discharge provider: Toribio Mccord PA-C Summary Hospital Course Discharge Diagnosis: Right knee osteoarthritis Status post right total knee arthroplasty Hospital Course: Patient was admitted to the hospital following the above-listed procedure for the above-listed diagnosis. Following the procedure the patient has been convalescing appropriately in her pain has been managed with current pain management regimen. Throughout her course of time in the hospital the patient has denied fever, chills, nausea, chest pain, shortness of breath, or urinary retention. Patient has successfully work on ambulation with the assistance of a front wheeled walker with physical therapy. Aquacel dressing over the incision site has remained intact following surgery. Aspirin 81 mg twice daily has been made administered for DVT prophylaxis along with the assistance of sequential compression devices. Standard total knee replacement protocol. Status at Discharge Cognitive/behavioral status at discharge: oriented Functional status at discharge: uses cane/walker Overall status at discharge: patient is progressing back to baseline Exam Vital Signs (past 8 hours): - 12/02/20 05:00 12/02/20 07:50 Temperature 97.1 F L 97.6 F Pulse Rate 59 L 61 Respiratory Rate 16 17 Blood Pressure 94/58 L 98/58 L Pulse Oximetry 94 94 Oxygen Delivery Method Room Air Oxygen Flow Rate 0 Narrative Exam Narrative: Pleasant 65-year-old female postop day 1 status post right total knee arthroplasty. Patient is resting comfortably in bed, is in no acute distress, is alert and oriented x3. Skin is warm and dry, and the skin around the incision site is free of erythema, warmth, induration, or discharge. Aquac el dressing in place is clean, dry, and intact. Good sensation appreciated throughout the bilateral lower extremities to light touch. Hip flexion performed bilaterally without difficulty or discomfort, left greater than right. Ankle dorsiflexion, plantar flexion, eversion, inversion performed bilaterally without difficulty or discomfort. DP pulses palpated bilaterally. Calves are soft and nontender, negative Homans sign. No other signs of DVT appreciated. Const General: cooperative, healthy appearing and comfortable Resp Effort & Inspection: normal respiratory effort and able to speak in complete sentences Skin General: no rashes or lesions noted Objective Labs Result Diagrams: 12/02/20 05:15 Labs: Laboratory Results - last 24 hr 12/02/20 05:15 Hgb 12.1 Hct 36.1 PFSH Medical History Aortic valve regurgitation Breast cancer (~2014) Chest pain Coronary arteriosclerosis Diastolic dysfunction Dyspnea on exertion H/O coronary angiogram (~07/23/17) History of chest pain Hypertension Leg swelling Lung nodule, multiple Sinus bradycardia Thoracic aortic aneurysm without rupture Thyroid mass Surgical History H/O hernia repair (~1996) History of appendectomy (~1995) History of arthroplasty of left knee (09/15/20) History of lumpectomy of right breast Status post LASIK surgery of both eyes Social History household members: none Smoking Status: Never smoker alcohol intake: current Discharge Assessment & Plan Assessment and Plan Assessment: Patient is doing well and is stable. Plan of Treatment: Patient is to continue physical therapy in the outpatient setting following discharge from the hospital. First postoperative visit is scheduled for 2 weeks following discharge. Current pain management regimen is to be continued as it is adequately controlled the patient's pain level. Aspirin 81 mg twice daily is to be continued for 6 weeks for DVT prophylaxis. Aquacel dressing over the incision site is to remain clean, dry, and intact for 2 weeks. Contact the clinic if the dressing becomes damaged or soiled. Patient is to remain weight-bearing as tolerated with the assistance of a front wheeled walker. Standard knee replacement protocol. Patient is to contact the clinic with any concerns or questions. Any signs of increased redness, swelling, warmth, pain, or discharge from the incision site should be reported to the clinic. Discharge Plan Discharge Plan Patient Disposition: Home Provider Discharge Comment: Patient cleared for discharge pending PT clearance. Discharge orders & Medications Discharge Orders: Discharge (Order); Ordered 12/02/20 Ordered By: Toribio Mccord Prescriptions: New acetaminophen 325 mg Tablet 650 mg PO QID PRN (Reason: Pain (Scale Score 4-6)) Qty: 90 RF: 0 aspirin 81 mg Tablet,Delayed Release (Dr/Ec) 81 mg PO BID Qty: 90 RF: 0 ibuprofen 400 mg Tablet 400 mg PO Q4HR Qty: 90 RF: 0 oxycodone 10 mg Tablet 10 mg PO Q3HR PRN (Reason: Pain, Severe (7-10)) Qty: 42 RF: 0 Continued meloxicam 7.5 mg Tablet 7.5 mg PO DAILY PRN (Reason: Pain) RF: 0 metoprolol tartrate 25 mg Tablet 12.5 mg PO BID RF: 0 hydrochlorothiazide 12.5 mg Tablet 12.5 mg PO DAILY RF: 0 coenzyme Q10 30 mg Capsule 30 mg PO DAILY RF: 0 cholecalciferol (vitamin D3) [Vitamin D3] 1,000 unit Tablet 1,000 unit PO DAILY RF: 0 omega-3 fatty acids-fish oil [Fish Oil] 300-1,000 mg Capsule 1 cap PO DAILY RF: 0 Chiki-E 400 mg Tablet 400 mg PO DAILY RF: 0 turmeric root extract 500 mg Capsule 500 mg PO DAILY RF: 0 oxycodone 5 mg tablet 5 mg PO Q4-6H PRN (Reason: pain) Qty: 14 RF: 0 pravastatin 10 mg Tablet 10 mg PO BEDTIME RF: 0 aspirin 81 mg Tablet,Delayed Release (Dr/Ec) 81 mg PO BID Qty: 0 RF: 0 acetaminophen [Tylenol] 325 mg Capsule 650 mg PO QID PRN (Reason: Pain (Scale Score 4-6)) RF: 0 Follow up/Referrals: Ariadna Chairez MD [Primary Care Provider] - Diet/Activity/Treatments Diet: Diet as Tolerated Activity: Weight-bearing as tolerated with the assistance of a front wheeled walker. Skin/Wound/Dressing Care Report to your healthcare provider any signs of infection, such as:: chills, fever, night sweats, increased pain, unusual drainage and unusual redness Dressing: Aquacel dressing over the incision site is to remain intact for 2 weeks. Contact the clinic if the dressing becomes damaged or soiled. Other wound treatment: Avoid placing topical ointments over the incision site. Avoid soaking the incision site. Visit Report/Discharge Packet Instructions: DI for Knee Replacement Stand Alone Forms: Surgery Discharge Discharge Data Primary Care Provider: Ariadna Chairez Attending Provider: Ernst White VTE Deep Vein Thrombosis/Pulmonary Embolism Present on Admission: No
--- NOTE | 2020-12-02 11:20 | PC.NURSE ---
Pt A&OX3, alert this a.m. eating full breakfast 100% without any n/v. VSS, afebrile. BP slightly low, held antihypertensives. Upon recheck 117/ 63 HR 77. Pt declines wanting to take BP meds this a.m. Pt reports pain increasing this a.m. with activity and working with PT, and given PRN oxycodone 5 mg per request. Pt cleared for discharge this a.m. after PA evaluation. Ambulating with FWW, steady gait. Dressing C/D/I. Medicated with second oxycodone 5mg after dressing, pt slightly tearful due to increased pain. But reports pain resolves to tolerable level of 4/10 with scheduled pain meds, prn oxycodone at ice. TRAVEL SALES CONSULTANT escorted patient via W/Ch to private vehicle with friend. She transported with FWW, all of her belongings as well as prescriptions.
--- NOTE | 2020-12-02 12:39 | CM.IDA ---
Initial DCP Assessment Note Pt is a 65 yo female, resident of [place], now POD#1 from Rt knee surgery w/ Dr White PCP: Ariadna Chairez Page [facility]: [facility] Reviewed chart, pt discussed in multidisciplinary rounds this morning. Patient familiar to this HARDWARE TECHNICIAN from prior visit in August. 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 No needs expected from DC planning team although will remain available in case this changes today. RUSTAM Betts
== END 2020-12-02 11:15 | disposition home or self-care (01) ==
LOC: OR 11:30 → AC 11:30
PROVIDERS: Admitting Provider Orthopaedic Surgery Adult Reconstructive Orthopaedic Surgery; PCP Internal Medicine; Referring Provider Orthopaedic Surgery Adult Reconstructive Orthopaedic Surgery; Visit Provider Orthopaedic Surgery Adult Reconstructive Orthopaedic Surgery
PROC: 0SRC0JZ Replacement of Right Knee Joint with Synthetic Substitute, Open Approach (ICD-10-PCS; CPT 27447; principal; 2020-12-01 10:45)
DX: M17.11 Unilateral primary osteoarthritis, right knee (principal); M21.061 Valgus deformity, not elsewhere classified, right knee; I71.2 Thoracic aortic aneurysm, without rupture
CPT/HCPCS: 27447; 36415; 73560; 85014; 85018; 97110; 97161; C1776; G0378; J0690; J1100; J1885; J2250; J2270; J2274; J2405; J2704

== ENCOUNTER → 2023-04-05 15:00 | Outpatient (CLI) | payer OTHER, SELFPAY ==
[2020-12-01 09:25] VITALS: BMI 28.8
== END ==
PROVIDERS: PCP Internal Medicine; Referring Provider Family Medicine; Visit Provider Family Medicine
DX: Z23 Encounter for immunization (principal)
CPT/HCPCS: 90471; 90686

== ENCOUNTER → 2024-08-14 13:08 | Outpatient (CLI) | payer MEDICARE, SELFPAY ==
[2020-12-01 09:25] VITALS: BMI 28.8
[2024-08-14 13:44] LABS: BUN Creatinine Ratio 29.2 (6-22); Blood Urea Nitrogen 26 mg/dL (7-17); Carbon Dioxide 25 mmol/L (22-32); Chloride 106 mmol/L (98-107); Estimated Glomerular Filt Rate > 60 mL/min (>60); Glucose 97 mg/dL (80-110); HEMOLYSIS < 15 (0-50); Potassium 4.3 mmol/L (3.4-5.1); Sodium 137 mmol/L (137-145)
== END ==
PROVIDERS: PCP Internal Medicine; Referring Provider Internal Medicine Interventional Cardiology; Visit Provider Internal Medicine Interventional Cardiology
DX: I71.21 Aneurysm of the ascending aorta, without rupture (principal)
CPT/HCPCS: 36415; 80048